=== PATIENT | male | born 1935 | race Caucasian/White ===

== ENCOUNTER 2018-05-07 16:22 | Emergency (ER) | payer OTHER, MEDICAID ==
[~2018-05-07] VITALS: Ht 167.6 cm; Wt 68.0 kg
--- NOTE | 2018-05-07 16:22 | NUR ---
PT BIB [facility] HOME WHERE THE PT BECAME DIZZY. 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 PT PLACED ON BED, PT NON-VERBAL AT THIS POINT.
--- NOTE | 2018-05-07 16:28 | NUR ---
PT TALKING NOW, WAS ABLE TO IDENTIFY THE SON AND HIS OCCUPATION. AT BED SIDE.
--- NOTE | 2018-05-07 16:28 | NUR ---
CODE STROKE CALLED BY HIREN GARCIA.
--- NOTE | 2018-05-07 16:29 | NUR ---
HG=[id number]
--- NOTE | 2018-05-07 16:29 | NUR ---
[place] in [facility] - 05/07/18 at 1646 by JAMILAH Code Stroke was called.
--- NOTE | 2018-05-07 16:30 | NUR ---
CODE STROKE CANCELLED BY ER MD. PT SON AND AT BEDSIDE.
--- NOTE | 2018-05-07 16:44 | NUR ---
[place] in [facility] - 05/07/18 at 1646 by JAMILAH Code stroke was cleared by Dr [email or web address].
[2018-05-07] MEDS ORDERED: SIMV5TAB59 PO (16:45)
[2018-05-07] MEDS ORDERED: WARF1TAB47 PO (16:45)
[2018-05-07] MEDS ORDERED: IV NORMAL SALINE 500 ML BAG IV ONE (16:45)
[2018-05-07] MEDS ORDERED: ATEN25TA PO (16:45)
[2018-05-07] MEDS ORDERED: CARV3.12 PO (16:45)
[2018-05-07 16:58] LABS: BASOPHILS % (AUTO) 0.4 % (0.0-2.0); EOSINOPHILS # (AUTO) 0.1 K/uL (0.0-0.7); EOSINOPHILS % (AUTO) 1.3 % (0.0-7.0); HEMATOCRIT 37.8 % (36.7-47.1); HEMOGLOBIN 12.7 g/dL (12.5-16.3); LYMPHOCYTES # (AUTO) 2.5 K/uL (20.0-40.0); LYMPHOCYTES % (AUTO) 34.3 % (20.5-51.5); MEAN CORPUSCULAR HEMOGLOBIN 31.7 uug (23.8-33.4); MEAN CORPUSCULAR HGB CONC 34 g/dL (32.5-36.3); MONOCYTES # (AUTO) 0.6 K/uL (2.0-10.0); MONOCYTES % (AUTO) 8.6 % (0.0-11.0); NEUTROPHILS % (AUTO) 55.4 % (38.5-71.5); PLATELET COUNT (AUTO) 165 K/uL (152-348); RED BLOOD CELL COUNT(AUTO) 4.03 MIL/uL (4.06-5.63); WHITE BLOOD COUNT (AUTO) 7.2 K/uL (3.6-10.2)
[2018-05-07 17:06] LABS: CARBON DIOXIDE 22 mmol/L (21-32); CHLORIDE 104 mmol/L (98-107); CREATININE 1.2 mg/dL (0.6-1.3); GLUCOSE 209 mg/dL (74-106); POTASSIUM 3.4 mmol/L (3.5-5.1); UREA NITROGEN, BLOOD 19 mg/dL (7-18)
[2018-05-07 17:12] LABS: ALANINE AMINOTRANSFERASE 36 U/L (16-63); ALKALINE PHOSPHATASE 81 U/L (50-136); ASPARTATE AMINOTRANSFERASE 29 U/L (15-37); BILIRUBIN,DIRECT 0.2 mg/dL (0.0-0.2); BILIRUBIN,TOTAL 0.7 mg/dL (0.2-1.0); TOTAL PROTEIN, SERUM 7.6 g/dL (6.4-8.2)
--- NOTE | 2018-05-07 17:29 | NUR ---
RHIANNON GARCIA TALKING TO DR. DAVIS
--- NOTE | 2018-05-07 19:02 | NUR ---
RECEIVED SHIFT REPORT FROM VÍCTOR RANKIN. PT RESTING IN BED AT THIS TIME. VSS. FAMILY AT BEDSIDE. AWAITING FOR CALL-BACK FROM [facility].
[2018-05-07] MEDS ORDERED: WARFARIN SODIUM 5 MG (19:35)
[2018-05-07] MEDS ORDERED: WARFARIN SODIUM 5 MG TABLET PO ONE (19:40)
[2018-05-07] MEDS ORDERED: WARFARIN SODIUM 2.5 MG TABLET ONE (19:41)
[2018-05-07] MEDS ORDERED: ATENOLOL 25 MG TABLET ONE (19:41)
[2018-05-07 19:42] VITALS: BP 123/64
[2018-05-07] MEDS ORDERED: ATENOLOL 25 MG TABLET PO ONE (19:45)
--- NOTE | 2018-05-07 20:08 | NUR ---
RECEIVED CALL FROM LENNON EPRP: ACCEPTING FACILITY [facility] : [id number] REPORT [phone] ALS TRANSPORT ([facility]) ETA 2100
--- NOTE | 2018-05-07 20:27 | NUR ---
GAVE REPORT TO VÍCTOR GATES, AT [facility].
--- NOTE | 2018-05-07 21:21 | NUR ---
PT WILL BE TRANSFERRED TO [facility] VIA [facility] UNIT [facility] (ALS UNIT). VSS. NO COMPLAINTS AT THIS TIME.
[2018-05-08] MEDS ORDERED: WARFARIN SODIUM 5 MG TABLET PO ONE (17:00)
== END 2018-05-07 21:27 | disposition short-term general hospital (02) ==
LOC: ER 16:24
DX: G45.9 Transient cerebral ischemic attack, unspecified (principal); I10 Essential (primary) hypertension; E78.5 Hyperlipidemia, unspecified; Z79.01 Long term (current) use of anticoagulants; Z79.899 Other long term (current) drug therapy
CPT/HCPCS: 36415; 70030-TC; 70450; 71045; 85025; 85730; 93005; A4663; J7040